=== PATIENT | female | born 2000 ===

== ENCOUNTER 2023-08-15 11:59 | Emergency (ER) | payer SELFPAY ==
--- NOTE | ~2023-08-15 | US_ITS ---
EXAMINATION: US FIRST TRIMESTER CLINICAL INFORMATION: Rule out ectopic, pain LMP: Unknown Beta-hCG: Unknown COMPARISON: None available. TECHNIQUE: Transabdominal imaging was performed. FINDINGS: UTERUS AND INTRAUTERINE GESTATIONAL SAC: There is a single intrauterine gestational sac. CROWN-RUMP LENGTH (CRL) : 0.7 cm, estimated age 6 weeks and 5 days, estimated date of confinement is 04/04/2024 YOLK SAC: Not found HEART MOTION: 130 BPM. SUBCHORIONIC HEMORRHAGE: None OVARIES: Right: Normal corpus luteal cyst 1.9 cm Left: Normal FREE FLUID: None OTHER FINDINGS: None US/US OB <= 14 weeks fetus IMPRESSION: 1. Single live intrauterine . 2. Estimated age 6 weeks 5 days.
[2023-08-15 12:11] VITALS: BP 130/80; PULSE 86; RESP 18; TEMP 36.7; O2SAT 97; BMI 23.2
--- NOTE | 2023-08-15 12:11 | ED_ITS ---
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 Patient reports that she has had the pain for about 1 week. She reports her last menstrual cycle was about a month and a half ago Denies any burning with urination or vaginal bleeding. No fevers or chills Patient reports that she has never been before Related Data Previous Rx's Medication Instructions Recorded amoxicillin 500 mg capsule 500 mg PO Q8H #21 caps 08/15/23 Allergies Allergy/AdvReac Type Severity Reaction Status Date / Time No Known Allergies Allergy Verified 08/15/23 12:15 Review of Systems 2 Constitutional: Constitutional: Denies chills and Denies fever(s) Gastrointestinal: Gastrointestinal: Reports abdominal pain Genitourinary: Genitourinary: Denies dysuria, Reports pelvic pain and Denies vaginal discharge Physical Exam ED Vital Signs: Vital Signs - 24 hr 08/15/23 12:11 08/15/23 18:41 Temperature 98.1 F 97.5 F Pulse Rate 86 92 Respiratory Rate 18 16 Blood Pressure 130/80 123/75 Pulse Oximetry 97 100 Oxygen Delivery Method Room Air Room Air BMI result Body Mass Index 23.2 Const General: healthy appearing, comfortable, no acute distress, alert and awake Nutritional Appearance: well nourished Orientation/consciousness: patient oriented x3 HENMT Head: Yes normocephalic and Yes atraumatic Eyes Eyelids: Yes eyelids normal Conjunctivae: conjunctivae normal Sclerae: sclerae normal Corneas: corneas normal Pupils: Equal, round and reactive pupils present EOM: EOMs intact bilaterally Neck Neck: Yes full ROM Resp Effort & Inspection: normal respiratory effort, able to speak in complete sentences and not labored Skin General skin exam: no rashes or lesions noted and elasticity normal Neuro General: patient oriented x3 Cranial nerves: Yes Equal, round and reactive pupils present and Yes Bilaterally intact EOM present Cognition (Neuro): normal cognition Extrem Other: Moving all extremities well without any obvious deformities Course Course Course Narrative: RME- 23 year old female presents for evaluation of lower abdominal pain. Her last menstrual period was almost 2 months ago. Plan for labs including Reevaluation(s) Reevaluation #1: [place] [address]. I added on ultrasound of the fetus to rule out ectopic . This showed a single, live intrauterine gestation at approximately 6 weeks 5 days. This was discussed with the patient. Medical Decision Making Medical Decision Making [facility] Narrative: 23-year-old female presents for evaluation of lower abdominal pain. She reports her menstrual cycle has been late this month. Plan for labs including serum hCG. Differential Diagnosis Differential Diagnoses: The differential diagnosis associated with the presentation includes Ectopic UTI Abdominal pain Constipation Lab Data [facility] Lab Attestation statement: I reviewed the patient's lab results. Mild leukocytosis to 11.7 K. no anemia. No significant electrolyte abnormalities[place] [address] 08/15/23 14:11 08/15/23 14:11 Labs: Lab Results 08/15/23 Range/Units 14:11 WBC 11.7 H (4.8-10.8) X10*3/uL RBC 4.95 (4.20-5.50) X10*6/uL Hgb 13.7 (12.0-16.0) g/dl Hct 42.8 (37.0-47.0) % MCV 86.5 (80.0-98.0) fL MCH 27.7 (27.0-33.0) pg MCHC 32.0 (31.0-35.0) g/dl RDW 13.7 (11.0-16.0) % Plt Count 308 (160-400) X10*3/uL MPV 10.1 (9.4-12.3) fL Immature Gran % (Auto) 0.3 (0.0-0.4) % Neut % (Auto) 60.8 (45-73) % Lymph % (Auto) 31.3 (20-40) % [place] % (Auto) 7.1 (2-11) % Eos % (Auto) 0.2 (0-4) % Baso % (Auto) 0.3 (0-2) % Lymph # (Auto) 3.7 (1.2-4.9) X10*3/uL [place] # (Auto) 0.8 (0.1-1.2) X10*3/uL Eos # (Auto) 0.0 (0.0-0.4) X10*3/uL Baso # (Auto) 0.0 (0.0-0.2) X10*3/uL Abs Immat Gran (auto) 0.04 H (0.00-0.03) X10*3/uL Absolute Neuts (auto) 7.1 (2.0-8.3) x10*3/uL Absolute Nucleated RBC 0.000 (0.0-0.012) X10*3/uL Nucleated RBC % (auto) 0.0 (0.0-0.2) /100WBC Sodium 137 (135-145) mmol/L Potassium 3.7 (3.3-5.1) mmol/L Chloride 106 (96-108) mmol/L Carbon Dioxide 21 L (22-29) mmol/L Anion Gap 14 (12-20) BUN 4 L (9-16) mg/dL Creatinine 0.66 (0.5-1.4) mg/dL Estim Creat Clear Calc 109.7 Estimated GFR > 60 Random Glucose 79 (60-115) mg/dL Calcium 9.6 (8.4-10.2) mg/dL Beta HCG, Quant 40588 mIU/mL Urine Color Yellow Urine Appearance Cloudy Urine pH 8.5 (5.0-9.0) Ur Specific [place] 1.015 (1.005-1.025) Urine Protein Negative (Neg-Trace) mg/dL Urine Glucose (UA) Negative (Negative) mg/dL Urine Ketones Negative (Negative) mg/dL Urine Blood Negative (Negative) Urine Nitrite Negative (Negative) Ur Leukocyte Esterase Moderate (2+) H (Negative) Urine RBC 0-2 (0-2) /HPF Urine WBC 6-10 H (0-5) /HPF Ur Squamous Epith Cells >20 (0-2) /HPF Urine Bacteria 1+ (None Seen) Hyaline Casts 0-2 (0-2) /LPF Independent Interpretation I performed an independent interpretation of an: Ultrasound (Agree with Radiology interpretation) Radiology Impression Discussion of test interpretation with radiology: I have reviewed the radiologist's reading. (Single live intrauterine gestation with crown-rump length and 0.7 cm. Estimated gestation 6 weeks 5 days) Discharge Plan Discharge Clinical Impression: , UTI (urinary tract infection) Patient Disposition: Home, Self-Care Instructions: (ED), Urinary Tract Infection in (ED) Additional Instructions: You are approximately 6 weeks and 5 days It is important that you follow-up with OBGYN You may follow up with [facility] in [place] [phone] [facility] [place], [address] Take amoxicillin 3 times a day for 5 days for UTI Prescriptions: New amoxicillin 500 mg capsule 500 mg PO Q8H Qty: 21 0RF
[2023-08-15 14:20] LABS: Basophils Percent Auto 0.3 % (0-2); Eosinophils Percent Auto 0.2 % (0-4); Hematocrit 42.8 % (37.0-47.0); Hemoglobin 13.7 g/dl (12.0-16.0); Imm Gran Abs Auto 0.04 X10*3/uL (0.00-0.03); Imm Gran Pct Auto 0.3 % (0.0-0.4); Lymphocytes Absolute Auto 3.7 X10*3/uL (1.2-4.9); Lymphocytes Percent Auto 31.3 % (20-40); MANUAL DIFF FLAG NO; Mean Corpuscular Hemoglobin 27.7 pg (27.0-33.0); Mean Corpuscular Volume 86.5 fL (80.0-98.0); Mean Platelet Volume 10.1 fL (9.4-12.3); Monocytes Absolute Auto 0.8 X10*3/uL (0.1-1.2); Monocytes Percent Auto 7.1 % (2-11); Neutrophils Absolute Auto 7.1 x10*3/uL (2.0-8.3); Neutrophils Percent Auto 60.8 % (45-73); Platelet Count 308 X10*3/uL (160-400); Red Blood Count 4.95 X10*6/uL (4.20-5.50); Red Cell Distribution Width 13.7 % (11.0-16.0); White Blood Count 11.7 X10*3/uL (4.8-10.8)
[2023-08-15 14:22] LABS: Appearance Urine Cloudy; Color Urine Yellow; Glucose Urine UA Negative (Negative); Leukocyte Esterase Urine Moderate (2+) (Negative); Nitrite Urine Negative (Negative); PH 8.5 (5.0-9.0); Specific Gravity - Urine 1.015 (1.005-1.025); UMIC TRIGGER UACC YES; Urine Blood Negative (Negative); Urine Ketones Negative (Negative); Urine Protein Negative (Neg-Trace)
[2023-08-15 14:24] LABS: Bacteria Urine 1+ (None Seen); Hyaline Casts Urine 0-2 /LPF (0-2); RBC Urine 0-2 /HPF (0-2); Squamous Epithelial Cell Urine >20 /HPF (0-2); UACC Culture Trigger YES
[2023-08-15 14:43] LABS: Anion Gap 14 (12-20); Blood Urea Nitrogen 4 mg/dL (9-16); Calcium 9.6 mg/dL (8.4-10.2); Carbon Dioxide 21 mmol/L (22-29); Chloride 106 mmol/L (96-108); Creatinine Clr Calc Pharmacy 109.7; Estimated Glomerular Filt Rate > 60; Glucose Random 79 mg/dL (60-115); Potassium 3.7 mmol/L (3.3-5.1); Sodium 137 mmol/L (135-145)
[2023-08-15 18:41] VITALS: BP 123/75; PULSE 92; RESP 16; TEMP 36.4; O2SAT 100
== END 2023-08-15 18:50 | disposition home or self-care (01) ==
LOC: HO.ED 18:46
PROVIDERS: Physician Assistant; Emergency Provider Internal Medicine
DX: O23.41 Unspecified infection of urinary tract in pregnancy, first trimester (principal); N39.0 Urinary tract infection, site not specified; R10.30 Lower abdominal pain, unspecified; Z3A.01 Less than 8 weeks gestation of pregnancy; Z79.899 Other long term (current) drug therapy
CPT/HCPCS: 36415; 76801; 80048; 81001; 84702; 85025; 87086; 99282; 99284

== ENCOUNTER 2023-09-01 16:36 | Emergency (ER) | payer SELFPAY ==
[2023-09-01 17:00] VITALS: BP 125/77; PULSE 75; RESP 20; TEMP 37; O2SAT 97; BMI 18.2
--- NOTE | 2023-09-01 17:00 | ED.HA ---
HPI - Headache General Chief Complaint: Headache Stated Complaint: Abdominal pain/8 weeks preg Time Seen by Provider: 09/01/23 22:05 Source: patient and family Mode of arrival: ambulatory Limitations: no limitations History of Present Illness HPI Narrative: 23 yo female 8 weeks no issues such as abdominal pain or vaginal bleeding has hx of migraines denies taking meds other than APAP or seeing a specialist/imaging done. She notes at rest today she developed R sided throbbing headache that worsened over an hour with photophobia and n/v. She notes no response to tylenol. She had no head trauma and is not on thinners. No documented fevers. MD elicited complaint: migraine Pertinent past history: migraines Onset (ago): hour(s) (12pm today) Onset description: gradually Location: right and temporal Severity: severe Quality & Timing: progressively worsening Exacerbating factors: light and noise Relieving factors: nothing Context: occurred at rest Associated symptoms: nausea, vomiting and photophobia Treatments prior to arrival: acetaminophen Related Data Previous Rx's Medication Instructions Recorded amoxicillin 500 mg capsule 500 mg PO Q8H #21 caps 08/15/23 Allergies Allergy/AdvReac Type Severity Reaction Status Date / Time No Known Allergies Allergy Verified 09/01/23 17:04 Review of Systems Review of Systems: Constitutional : No Fever, No Chills, No Fatigue ENT/Mouth : No sore throat, No Rhinorrhea Eyes: No Eye Pain, No Swelling, No Redness Cardiovascular : No Chest Pain, No SOB, No Dyspnea on Exertion Respiratory : No Cough, No Sputum Gastrointestinal : pos Nausea, pos Vomiting, No Diarrhea, No abdominal Pain Genitourinary : No Dysuria, No Urinary Frequency, No Hematuria, Musculoskeletal : No joint pain, No Myalgias, No Joint Swelling Skin : No Skin Lesions, No rash Neuro : No Weakness, No Numbness, No Dizziness, positive Headache Psych : No Anxiety/Panic, No Depression All other systems reviewed and are negative [facility] Past Medical History Attestation statement: The following information was validated with the patient. Medical History Migraine Social History Social History (Updated 09/01/23 @ 22:37 by Madhavi Kc DO) Patient Tobacco Use Status: Tobacco use Unknown Smoked in Last 30 Days: No Advance Directives: No Advance Directives Information Provided: No Physical Exam Vital Signs: Vital Signs: Last Vital Signs Temp 98.2 F 09/01/23 21:06 Pulse 87 09/01/23 22:30 Resp 18 09/01/23 22:30 BP 118/76 09/01/23 22:30 Pulse Ox 99 09/01/23 22:30 O2 Del Method Room Air 09/01/23 22:30 BMI result Body Mass Index 18.2 Appearance: Alert. Oriented X3. No acute distress. Eyes: Pupils equal, round and reactive to light. + photophobia ENT: Pharynx normal. Neck: Normal inspection. Neck supple. no meningeal signs CVS: Normal heart rate and rhythm. Pulses normal. Respiratory: No respiratory distress. Breath sounds normal. Abdomen: Soft and nontender. Skin: Skin warm and dry. Normal skin color. Normal skin turgor. Extremities: No lower extremity edema. No calf ttp Neuro: Oriented X 3. No motor deficit. No sensory deficit. Course Course Course Narrative: RME:?23 yo female 8 wks here for evaluation of headache x5 hours. states this feels like her typical migraine however it is lasting longer than usual. denies taking daily medications for migraines. has been taking tylenol without relief. bf in triage states patient had difficulty writing around 1330. Denies vision change, N/V, abdominal pain, vaginal bleeding, dysuria, hematuria. denies head strike or injury. has not followed up with ob since diagnosis. not wanting to answer questions in triage. + photophobia, PERRLA. AOX3. No pronator drift. No facial droop. strength 5/5 throughout. labs and flu/covid ordered. Full HPI, ROS and PE to be performed by the primary ED provider. Medications Administered Discontinued Medications Generic Name Dose Route Start Last Admin Trade Name Freq PRN Reason Stop Dose Admin Diphenhydramine HCl 25 mg 09/01/23 22:21 09/01/23 22:39 Diphenhydramine Hcl 50 Mg/Ml Vial IVPUSH 09/01/23 22:22 25 mg ONCE ONE Administration Sodium Chloride 1,000 mls @ 999 mls/hr 09/01/23 22:30 09/01/23 23:39 Ns IV 09/01/23 23:30 Infused .Q1H1M YASMANY Infusion Metoclopramide HCl 10 mg 09/01/23 22:21 09/01/23 22:39 Metoclopramide Hcl 10 Mg/2 Ml Vial IVPUSH 09/01/23 22:22 10 mg ONCE ONE Administration Medical Decision Making Medical Decision Making [facility] Narrative: 23 yo female with PMH of migraines here with gradual onset headache not on thinners, normal neuro exam, no fevers, no meningeal signs, at this time history and clinical exam not consistent with HANDICAPPED TEACHER infection or SAH at this time will obtain basic labs hydrate and provide medications. Suspect dehydration vs migraine. She has no OB related complaints. Differential Diagnosis Differential Diagnoses: The differential diagnosis associated with the presentation includes dehydration, tension headache, migraine headache Admission/Observation Consideration of admission/observation: Escalation of care including admission/observation considered patient feels much better wants to go home and sleep Lab Data [facility] Lab Attestation statement: I reviewed the patient's lab results. 09/01/23 17:29 09/01/23 17:29 Labs: Lab Results 09/01/23 Range/Units 17:29 WBC 12.2 H (4.8-10.8) X10*3/uL RBC 4.74 (4.20-5.50) X10*6/uL Hgb 13.2 (12.0-16.0) g/dl Hct 40.3 (37.0-47.0) % MCV 85.0 (80.0-98.0) fL MCH 27.8 (27.0-33.0) pg MCHC 32.8 (31.0-35.0) g/dl RDW 13.2 (11.0-16.0) % Plt Count 263 (160-400) X10*3/uL MPV 10.8 (9.4-12.3) fL Immature Gran % (Auto) 0.3 (0.0-0.4) % Neut % (Auto) 75.0 H (45-73) % Lymph % (Auto) 19.2 L (20-40) % [place] % (Auto) 5.3 (2-11) % Eos % (Auto) 0.0 (0-4) % Baso % (Auto) 0.2 (0-2) % Lymph # (Auto) 2.3 (1.2-4.9) X10*3/uL [place] # (Auto) 0.7 (0.1-1.2) X10*3/uL Eos # (Auto) 0.0 (0.0-0.4) X10*3/uL Baso # (Auto) 0.0 (0.0-0.2) X10*3/uL Abs Immat Gran (auto) 0.04 H (0.00-0.03) X10*3/uL Absolute Neuts (auto) 9.1 H (2.0-8.3) x10*3/uL Absolute Nucleated RBC 0.000 (0.0-0.012) X10*3/uL Nucleated RBC % (auto) 0.0 (0.0-0.2) /100WBC Sodium 136 (135-145) mmol/L Potassium 3.4 (3.3-5.1) mmol/L Chloride 106 (96-108) mmol/L Carbon Dioxide 22 (22-29) mmol/L Anion Gap 11 L (12-20) BUN 5 L (9-16) mg/dL Creatinine 0.58 (0.5-1.4) mg/dL Estim Creat Clear Calc 129.6 Estimated GFR > 60 Random Glucose 106 (60-115) mg/dL Calcium 9.5 (8.4-10.2) mg/dL Magnesium 1.8 (1.6-2.6) mg/dL Beta HCG, Quant [id number] mIU/mL COVID-19 (IZZY) Negative (Negative) COVID-19 Clin Com See Note Influenza Type A (ILIR) Negative (Negative) Influenza Type B (ILIR) Negative (Negative) Influenza A & B Note See Note Independent Historian Clinical information obtained from an independent historian. History obtained from or confirmed by: Spouse Tests considered The following testing was considered but not selected: CT head but doubt SAH given timeline and presentation not indicated Prescription Management I considered prescription management with: Other Discharge Plan Discharge Clinical Impression: Migraine Qualifiers: Migraine type: unspecified Status migrainosus presence: without status migrainosus Intractability: not intractable Qualified Code(s): G43.909 - Migraine, unspecified, not intractable, without status migrainosus Patient Disposition: Home, Self-Care Instructions: Migraine Headache (ED) Additional Instructions: return for fevers, worsening pain, change in vision, numbness, weakness, confusion or any other concerns. stay hydrated. Regrese si tiene fiebre, dolor que empeora, cambios en la visi?n, entumecimiento, debilidad, confusi?n o cualquier otra inquietud. Mantente hidratado. Prescriptions: No Action amoxicillin 500 mg capsule 500 mg PO Q8H Qty: 21 0RF Print Language: Thai
[2023-09-01 17:33] LABS: MANUAL DIFF FLAG NO
[2023-09-01 17:35] LABS: Basophils Percent Auto 0.2 % (0-2); Hematocrit 40.3 % (37.0-47.0); Hemoglobin 13.2 g/dl (12.0-16.0); Imm Gran Abs Auto 0.04 X10*3/uL (0.00-0.03); Imm Gran Pct Auto 0.3 % (0.0-0.4); Lymphocytes Absolute Auto 2.3 X10*3/uL (1.2-4.9); Lymphocytes Percent Auto 19.2 % (20-40); Mean Corpuscular HGB Conc 32.8 g/dl (31.0-35.0); Mean Corpuscular Hemoglobin 27.8 pg (27.0-33.0); Mean Platelet Volume 10.8 fL (9.4-12.3); Monocytes Absolute Auto 0.7 X10*3/uL (0.1-1.2); Monocytes Percent Auto 5.3 % (2-11); Neutrophils Absolute Auto 9.1 x10*3/uL (2.0-8.3); Platelet Count 263 X10*3/uL (160-400); Red Blood Count 4.74 X10*6/uL (4.20-5.50); Red Cell Distribution Width 13.2 % (11.0-16.0); White Blood Count 12.2 X10*3/uL (4.8-10.8)
[2023-09-01 17:53] LABS: Anion Gap 11 (12-20); Blood Urea Nitrogen 5 mg/dL (9-16); Calcium 9.5 mg/dL (8.4-10.2); Carbon Dioxide 22 mmol/L (22-29); Chloride 106 mmol/L (96-108); Creatinine Clr Calc Pharmacy 129.6; Estimated Glomerular Filt Rate > 60; Glucose Random 106 mg/dL (60-115); Magnesium 1.8 mg/dL (1.6-2.6); Potassium 3.4 mmol/L (3.3-5.1); Sodium 136 mmol/L (135-145)
[2023-09-01 17:56] LABS: COVID-19 Test Negative (Negative); IDNOW Serial# 08D9AD1C
[2023-09-01 17:57] LABS: IDNOW Serial# 152EDE1D; Influenza A Negative (Negative); Influenza B2 Negative (Negative)
[2023-09-01 21:06] VITALS: BP 126/72; PULSE 71; RESP 14; TEMP 36.8; O2SAT 100
[2023-09-01 22:30] VITALS: BP 118/76; PULSE 87; RESP 18; O2SAT 99
[2023-09-01] MEDS: diphenhydrAMINE HCL 50 MG/ML VIAL 25 MG IVPUSH (22:39)
[2023-09-01] MEDS: 0.9 % Sodium Chloride 1,000 ML 999 ML IV (22:39)
[2023-09-01] MEDS: Metoclopramide HCl 10 MG/2 ML VIAL IVPUSH (22:39)
== END 2023-09-02 00:42 | disposition home or self-care (01) ==
PROVIDERS: Physician Assistant Medical; Emergency Provider Emergency Medicine
DX: O26.91 Pregnancy related conditions, unspecified, first trimester (principal); G43.909 Migraine, unspecified, not intractable, without status migrainosus; Z3A.08 8 weeks gestation of pregnancy; Z11.52 Encounter for screening for COVID-19; Z79.899 Other long term (current) drug therapy
CPT/HCPCS: 36415; 80048; 83735; 84702; 85025; 87502; 87635; 96361; 96374; 96375; 99284; J1200; J2765